=== PATIENT | female | born 1985 | race Caucasian/White ===

== ENCOUNTER 2016-10-07 19:34 | Emergency (ER) | payer MEDICARE, OTHER ==
[~2016-10-07] VITALS: Ht 165.1 cm; Wt 90.7 kg
[~2016-10-07 19:34] MED LIST: BIRTH CONTROL PILL PO; CELEXA; MAALOX SUSPENS355 ML; SEROQUEL300 MG PO; TOPAMAX50 MG PO; TUMS; WELLBUTRIN XL150 MG PO; XANAX2 MG PO; ZOFRAN8 MG PO; [UNRECOGNIZED DRUG - OTHER] PO
== END 2016-10-07 20:48 | disposition home or self-care (01) ==
LOC: CFTX 19:34 → CED 19:34 → CFTX 20:35
DX: J20.9 Acute bronchitis, unspecified (principal); J06.9 Acute upper respiratory infection, unspecified; F17.210 Nicotine dependence, cigarettes, uncomplicated; Z90.49 Acquired absence of other specified parts of digestive tract; Z79.899 Other long term (current) drug therapy; Z88.0 Allergy status to penicillin; Z88.1 Allergy status to other antibiotic agents; Z88.8 Allergy status to other drugs, medicaments and biological substances
CPT/HCPCS: 99283